=== PATIENT | male | born 1995 | race African-American/Black ===

== ENCOUNTER 2024-06-05 12:39 | Emergency (ER) | payer MEDICAID ==
[~2024-06-05] VITALS: Ht 185.4 cm; Wt 77.0 kg
[2024-06-05 12:42] VITALS: BP 157/104; PULSE 91; RESP 16; TEMP 98.6; O2SAT 99
[2024-06-05 13:11] LABS: CLARITY URINE CLEAR (CLEAR); COLOR URINE DARK YELLOW (YELLOW); GLUCOSE URINE NEGATIVE (NEGATIVE); KETONES URINE NEGATIVE (NEGATIVE); LEUKOCYTE ESTERASE URINE 1+ (NEGATIVE); NITRITE URINE NEGATIVE (NEGATIVE); OCCULT BLOOD URINE NEGATIVE (NEGATIVE); PROTEIN URINE 1+ (NEGATIVE); SPECIFIC GRAVITY URINE 1.029 (1.005-1.030)
[2024-06-05] MEDS ORDERED: ONDANSETRON 4MG ODT PO STA (13:25)
[2024-06-05] MEDS ORDERED: MAGNESIUM/ALUMINUM HYDROXIDE/SIMETHICONE 30ML UDC PO STA (13:25)
[2024-06-05] MEDS ORDERED: DICYCLOMINE 10 MG/5 ML ORAL SYR PO STA (13:25)
[2024-06-05] MEDS ORDERED: FAMOTIDINE 20MG TABLET PO ONE (13:30)
[2024-06-05 13:48] LABS: BASOPHILS % 0.7 % (0.0-2.0); EOSINOPHILS % 0.1 % (0.0-5.0); HEMATOCRIT. 46.5 % (42.0-52.0); LYMPHOCYTES % 25.6 % (20.0-50.0); MEAN CORPUSCULAR HEMOGLOBIN 27.7 pg (28.0-32.0); MEAN CORPUSCULAR HGB CONC 32.1 g/dL (31.0-37.0); MEAN CORPUSCULAR VOLUME 86.4 fL (80.0-94.0); MEAN PLATELET VOLUME 7.4 fl (7.4-10.4); MONOCYTES % 12.1 % (2.0-8.0); NEUTROPHILS % 61.5 % (40.0-76.0); PLATELET 223 x1000/uL (130-400); RED BLOOD CELL COUNT 5.39 mill/uL (4.7-6.1); RED CELL DISTRIBUTION WIDTH 13.4 % (11.6-14.6); WHITE BLOOD COUNT 6.8 x1000/uL (4.5-11.0)
[2024-06-05 13:51] LABS: CHLORIDE 101 mEq/L (98-107); POTASSIUM 3.3 mEq/L (3.5-5.1); SODIUM 135 mEq/L (136-145)
[2024-06-05 13:52] LABS: CALCIUM 9.5 mg/dL (8.7-10.4); CARBON DIOXIDE 26 mEq/L (21-32)
[2024-06-05 13:57] LABS: BACTERIA URINE TRACE; MUCUS URINE TRACE /lpf (NONE/TRACE); SQUAMOUS EPITHELIAL CELL URINE 1+ /lpf (RARE/1+)
[2024-06-05 13:57] LABS: CREATININE 1.1 mg/dL (0.6-1.3); GLUCOSE 76 mg/dL (70-105); UREA NITROGEN BLOOD 17 mg/dL (9-23)
[2024-06-05 13:58] LABS: RBC URINE 0-2 /hpf (0-2)
[2024-06-05 13:59] LABS: ALANINE AMINOTRANSFERASE 15 IU/L (10-49); ALBUMIN 4.7 g/dL (3.2-4.8); ASPARTATE AMINOTRANSFERASE 17 IU/L (<34); BILIRUBIN DIRECT 0.4 mg/dL (<=3.0)
[2024-06-05 14:00] LABS: BILIRUBIN TOTAL 1.2 mg/dL (0.1-1.0); PROTEIN TOTAL 8.3 g/dL (6.0-8.3)
[2024-06-05] MEDS: FAMOTIDINE 20MG TABLET PO NR (15:00)
[2024-06-05] MEDS: DICYCLOMINE HCL 10MG CAPSULE PO NR (15:00)
[2024-06-05] MEDS: MAGNESIUM/ALUMINUM HYDROXIDE/SIMETHICONE 30ML UDC PO NR (15:00)
[2024-06-05] MEDS: ONDANSETRON 4MG ODT PO NR (15:00)
[2024-06-05] MEDS ORDERED: FAMO-135 MT (15:12)
== END 2024-06-05 15:07 | disposition left against medical advice (07) ==
LOC: ER 12:39
DX: K29.70 Gastritis, unspecified, without bleeding (principal)
CPT/HCPCS: 80076; 80048; 81003; 83690; 85025; 36415; 99284; Q0162; Z7610 ×3; C1893

== ENCOUNTER 2024-06-07 09:53 | Emergency (ER) | payer MEDICAID ==
[~2024-06-07] VITALS: Ht 185.4 cm; Wt 84.0 kg
[~2024-06-07 09:53] MED LIST: FAMO-135 MT
[2024-06-07 09:57] VITALS: BP 136/90; PULSE 106; RESP 16; TEMP 98.6; O2SAT 100
[2024-06-07] MEDS: SODIUM CHLORIDE 0.9% 1,000 ML IV ONE (10:56)
[2024-06-07] MEDS: FAMOTIDINE 20MG/2ML VIAL IV STA (11:02)
[2024-06-07] MEDS: METOCLOPRAMIDE HCL 10MG/2ML VIAL IV STA (11:02)
[2024-06-07 11:14] LABS: EOSINOPHILS % 0.7 % (0.0-5.0); HEMATOCRIT. 49.4 % (42.0-52.0); HEMOGLOBIN. 16.3 g/dL (14.0-18.0); LYMPHOCYTES % 27.3 % (20.0-50.0); MEAN CORPUSCULAR HEMOGLOBIN 28.4 pg (28.0-32.0); MEAN CORPUSCULAR VOLUME 85.9 fL (80.0-94.0); MEAN PLATELET VOLUME 7.4 fl (7.4-10.4); MONOCYTES % 8.6 % (2.0-8.0); NEUTROPHILS % 62.4 % (40.0-76.0); PLATELET 220 x1000/uL (130-400); RED BLOOD CELL COUNT 5.75 mill/uL (4.7-6.1); RED CELL DISTRIBUTION WIDTH 13.1 % (11.6-14.6); WHITE BLOOD COUNT 5.4 x1000/uL (4.5-11.0)
[2024-06-07 11:24] LABS: CHLORIDE 101 mEq/L (98-107); POTASSIUM 3.1 mEq/L (3.5-5.1); SODIUM 137 mEq/L (136-145)
[2024-06-07 11:25] LABS: CALCIUM 9.9 mg/dL (8.7-10.4); CARBON DIOXIDE 29 mEq/L (21-32)
[2024-06-07 11:30] LABS: CREATININE 1.4 mg/dL (0.6-1.3); GLUCOSE 101 mg/dL (70-105); UREA NITROGEN BLOOD 15 mg/dL (9-23)
[2024-06-07 11:32] LABS: ALANINE AMINOTRANSFERASE 16 IU/L (10-49); ALBUMIN 4.8 g/dL (3.2-4.8); ASPARTATE AMINOTRANSFERASE 16 IU/L (<34); BILIRUBIN DIRECT 0.3 mg/dL (<=3.0)
[2024-06-07 11:33] LABS: PROTEIN TOTAL 8.6 g/dL (6.0-8.3)
[2024-06-07] MEDS ORDERED: POTASSIUM CHLORIDE 20MEQ TABLET SR PO ONE (11:45)
[2024-06-07] MEDS ORDERED: LACTATED RINGERS 1,000 ML IV ONE (11:45)
[2024-06-07 12:35] LABS: CLARITY URINE CLEAR (CLEAR); COLOR URINE DARK YELLOW (YELLOW); GLUCOSE URINE NEGATIVE (NEGATIVE); KETONES URINE TRACE (NEGATIVE); LEUKOCYTE ESTERASE URINE TRACE (NEGATIVE); NITRITE URINE NEGATIVE (NEGATIVE); OCCULT BLOOD URINE NEGATIVE (NEGATIVE); PH URINE 6.5 (4.5-8.0); PROTEIN URINE 1+ (NEGATIVE); SPECIFIC GRAVITY URINE 1.024 (1.005-1.030)
[2024-06-07 12:44] LABS: BACTERIA URINE 2+; MUCUS URINE 2+ /lpf (NONE/TRACE); RBC URINE 0-2 /hpf (0-2); SQUAMOUS EPITHELIAL CELL URINE FEW /lpf (RARE/1+); YEAST URINE NONE SEEN
[2024-06-07] MEDS ORDERED: CEFP200T13 MT (12:55)
== END 2024-06-07 10:22 | disposition left against medical advice (07) ==
LOC: ER 09:53
DX: N39.0 Urinary tract infection, site not specified (principal); R10.13 Epigastric pain; R11.2 Nausea with vomiting, unspecified; E87.6 Hypokalemia; N17.9 Acute kidney failure, unspecified
CPT/HCPCS: 80076; 80048; 81003; 83690; 85025; 87086; 36415; 96361; 96374; 96375; 99284; J3490; J2765; J7120; J7030; Z7610